=== PATIENT | female | born 1990 | race Caucasian/White ===

== ENCOUNTER 2018-08-28 00:29 | Outpatient (CLI) | payer MEDICARE, MEDICAID ==
[~2018-08-28 00:29] MED LIST: CEPH-357 PO; IBUP-1985 PO; ONDA4TAB12 PO; OXYC-145 PO; TRAM50TA2 PO; ZOF4T PO
== END 2018-08-28 23:59 | disposition home or self-care (01) ==
LOC: DIABETIC 00:29
PROVIDERS: ATTEND Surgery
DX: E66.01 Morbid (severe) obesity due to excess calories (principal); Z68.41 Body mass index [BMI] 40.0-44.9, adult; Z71.3 Dietary counseling and surveillance
CPT/HCPCS: 97802

== ENCOUNTER 2018-10-02 05:12 | Outpatient (CLI) | payer MEDICARE, MEDICAID | END 2018-10-02 23:59 | disposition home or self-care (01) | LOC: DIABETIC 05:12 | PROVIDERS: ATTEND Surgery | DX: Z71.3 Dietary counseling and surveillance (principal); E66.01 Morbid (severe) obesity due to excess calories | CPT/HCPCS: G0108 ==

== ENCOUNTER 2018-10-25 01:26 | Outpatient (CLI) | payer MEDICARE, MEDICAID | END 2018-10-25 23:59 | disposition home or self-care (01) | LOC: DIABETIC 01:26 | PROVIDERS: ATTEND Surgery | DX: E66.01 Morbid (severe) obesity due to excess calories (principal); Z71.3 Dietary counseling and surveillance; Z68.39 Body mass index [BMI] 39.0-39.9, adult | CPT/HCPCS: 97802 ==

== ENCOUNTER 2018-11-20 04:53 | Outpatient (CLI) | payer MEDICARE, MEDICAID | END 2018-11-20 23:59 | disposition home or self-care (01) | LOC: DIABETIC 04:53 | PROVIDERS: ATTEND Surgery | DX: E66.01 Morbid (severe) obesity due to excess calories (principal); Z68.33 Body mass index [BMI] 33.0-33.9, adult; Z71.3 Dietary counseling and surveillance | CPT/HCPCS: 97802 ==